=== PATIENT | male | born 1980 | race Caucasian/White ===

== ENCOUNTER 2016-09-21 13:43 | Emergency (ER) | payer OTHER ==
[~2016-09-21] VITALS: Ht 180.3 cm; Wt 95.1 kg
[~2016-09-21 13:43] MED LIST: PERC5TAB12 PO
[2016-09-21 13:45] VITALS: BP 147/83; PULSE 99; RESP 15; TEMP 98.1; O2SAT 100
--- NOTE | 2016-09-21 14:29 | PD ---
HPI Chief Complaint: Foreign Body Time Seen by Provider: 14:26 Travel History International Travel<30 days: No Contact w/Intl Traveler<30days: No Traveled to known affect area: No History of Present Illness HPI 36-year-old male with PMH of DM presents to the ED for evaluation of right knee pain. Patient states that he tripped 3 days ago, landing on the right knee. States that the injury was minor and he gave it very little thought. However after the mild swelling went down he noticed redness and tenderness on the anterior aspect near the patella. He suspects there may be a foreign body. He states that he attempted to remove the foreign body with tweezers but was unsuccessful. He denies fevers, chills, numbness, tingling, weakness, limitations to range of motion or loss of strength of the extremity. PFSH Past Medical History Hx Anticoagulant Therapy: No Arthritis: No Asthma: No Heart Rhythm Problems: No Cardiovascular Problems: No High Cholesterol: No Chemotherapy: No Chest Pain: Yes (TODAY ONLY) COPD: No Cerebrovascular Accident: No Diabetes: Yes (Type 1) Patient Takes Glucophage: No Diminished Hearing: No GERD: No Genitourinary: No Headaches: No Hepatitis: No Hiatal Hernia: No Hypertension: No Kidney Stones: No Medical other: Yes (chonic left hip pain) Musculoskeletal: No Neurologic: No Reproductive: No Respiratory: No Migraines: No Myocardial Infarction: No Pancreatitis: Yes Renal Failure: No Seizures: No Sleep Apnea: No Ulcer: No Tetanus Vaccination: < 5 Years Influenza Vaccination: No ?: Not Past Surgical History Abdominal Surgery: Yes (partial pancreatectomy) Appendectomy: No Cardiac Surgery: No Cholecystectomy: Yes Ear Surgery: No Endocrine Surgery: No Eye Surgery: No Genitourinary Surgery: No Gynecologic Surgery: No Joint Replacement: Yes (LEFT HIP reconstruction) Oral Surgery: No Thoracic Surgery: No Other Surgery: Yes Social History Alcohol Use: No Tobacco Use: Yes (1/2 PPD) Substance Use: No Allergies-Medications (Allergen,Severity, Reaction): Coded Allergies: Skelaxin (Verified Allergy, Mild, itch, 09/21/16) Methadone (Verified Adverse Reaction, Intermediate, dizzy, 09/21/16) Reported Meds & Prescriptions Reported Meds & Active Scripts Active Keflex (Cephalexin) 500 Mg Cap 500 Mg PO Q8H Bactrim DS (Sulfamethoxazole-Trimethoprim) 800-160 Mg Tab 1 Tab PO BID Review of Systems Except as stated in HPI: all other systems reviewed are Neg Physical Exam Narrative GENERAL: Well-nourished, well-developed white male in no acute distress. SKIN: Focused skin assessment warm/dry. There is a 1 cm tender, erythematous, indurated area with a central punctum on the anterior aspect of the right knee. HEAD: Normocephalic. EYES: No scleral icterus. No injection or drainage. NECK: Supple, trachea midline. No JVD or lymphadenopathy. CARDIOVASCULAR: Regular rate and rhythm without murmurs, gallops, or rubs. RESPIRATORY: Breath sounds equal bilaterally. No accessory muscle use. GASTROINTESTINAL: Abdomen soft, non-tender, nondistended. MUSCULOSKELETAL: No cyanosis, or edema. Focused right lower extremity exam: 2+ DP pulse. Mild tenderness palpation of the anterior superior patella. Patient maintains full, active, painless ROM of the extremity. Neurovascularly intact. BACK: Nontender without obvious deformity. No CVA tenderness. Data Data Last Documented VS Vital Signs Date Time Temp Pulse Resp B/P Pulse Ox O2 Delivery O2 Flow Rate FiO2 09/21/16 14:02 16 09/21/16 13:45 98.1 99 147/83 100 Orders Knee, Ltd (1 Or 2vws) (09/21/16 14:25) Lidocai-Epi 1%-1:100,000 Inj (Xylocaine- (09/21/16 15:15) MDM Medical Decision Making Medical Screen Exam Complete: Yes Emergency Medical Condition: Yes Differential Diagnosis contusion versus foreign body versus abscess versus cellulitis versus other Narrative Course 36-year-old male with PMH of DM presents to the ED for evaluation of right knee pain. Patient states that he tripped 3 days ago, landing on the right knee. After the mild swelling went down he noticed redness and tenderness on the anterior aspect near the patella. He suspects there may be a foreign body. He denies fevers, chills, numbness, tingling, weakness, limitations to range of motion or loss of strength of the extremity. Vitals reviewed. Physical exam reveals a 1 cm tender, erythematous, indurated area with a central punctum on the anterior aspect of the right knee. No limitations to our OM. Neurovascularly intact. X-rays revealed no acute finding or foreign body per radiology read. Wound exploration and foreign body removal was performed. Please see my procedure note for details. Given the patient's history of DM he was prescribed prophylactic antibiotics, Bactrim and Keflex. He is instructed to take the medicine as prescribed, return for worsening of symptoms, otherwise follow up with the primary care provider. He indicated understanding of the instructions and is agreeable to the care plan. He is stable and discharged home. Procedures Procedure Narrative WOUND EXPLORATION AND FB REMOVAL: LOCATION: Right anterior knee LENGTH: 2 mm The area was anesthetized with 1% lidocaine with epinephrine, 2 mL's. Adequate anesthesia was obtained. The wound was prepped with Betadine. The wound was flushed with copious normal saline and a minuscule, nonmetallic foreign body was removed. The wound was left open to heal by secondary intention. A sterile dressing was applied. Patient was given detailed wound care instructions. He tolerated the procedure well. Diagnosis Primary Impression: Puncture wound of right knee with foreign body Qualified Code: S81.041A - Puncture wound of right knee with foreign body, initial encounter Referrals: Primary Care Physician Patient Instructions: General Instructions, Puncture Wound (ED) Additional Instructions: Rest, hydrate. Do not change the dressing for 24 hours You may shower normally. Do not submerge the wound. After bathing pat of wound dry. Allow the wound to air dry for 10-15 minutes. Apply a thin layer of antibiotic ointment and a clean, dry dressing. Take the antibiotics as they are prescribed, even if your symptoms resolve. Utilize [id number] pain medications, as described on the label, as needed. Follow-up with your primary care provider. Return to the ED for worsening symptoms or any urgent or emergent medical condition. Scripts Cephalexin (Keflex)500 Mg [id number] Mg PO Q8H #30 CAP Ref 0 Prov:Nell Mariee MD 09/21/16 Sulfamethoxazole-Trimethoprim (Bactrim DS)800-160 Mg Tab1 Tab PO BID #14 TAB Ref 0 Prov:Nell Mariee MD 09/21/16 Disposition: 01 DISCHARGE HOME Condition: Stable Magalis Ceja Sep 21, 2016 14:28
--- NOTE | 2016-09-21 15:12 | RADHPO ---
EXAM DATE/TIME: 09/21/2016 14:45 [facility] COMPARISON: No previous studies available for comparison. INDICATIONS : Small, non healing puncture wound from fall 1 week ago, possible foreign body per patient MEDICAL HISTORY : None. SURGICAL HISTORY : None. ENCOUNTER: Initial ACUITY: 1 week PAIN SCORE: 2/10 LOCATION: Right knee FINDINGS: Two view examination of the right knee demonstrates no evidence of fracture or dislocation. Bony min eralization is normal. The suprapatellar soft tissues have a normal configuration. CONCLUSION: 1. No acute findings. No radiopaque foreign body identified. Quang Swenson MD on September 21, 2016 at 15:08 Board Certified Radiologist. This report was verified electronically.
[2016-09-21] MEDS ORDERED: LIDOCAINE 1%/EPINEPHrine 1:100,000 SOLN 20 ML VIAL INFIL ONE (15:15)
[2016-09-21] MEDS ORDERED: CEPH-460 PO (15:33)
[2016-09-21] MEDS ORDERED: BACT800T5 PO (15:33)
== END 2016-09-21 15:43 | disposition home or self-care (01) ==
LOC: PHEFT 13:43
DX: S81.041A Puncture wound with foreign body, right knee, initial encounter (principal); E10.9 Type 1 diabetes mellitus without complications; F17.200 Nicotine dependence, unspecified, uncomplicated; Z87.39 Personal history of other diseases of the musculoskeletal system and connective tissue; Z87.19 Personal history of other diseases of the digestive system; W01.0XXA Fall on same level from slipping, tripping and stumbling without subsequent striking against object, initial encounter
CPT/HCPCS: 73560; 99283

== ENCOUNTER 2018-03-31 15:37 | Inpatient (IN) ==
[2018-03-31] MEDS: Dextrose 10% in Water Inj 1,000 ML IV.SIG SCH ×2 (17:14→21:09)
[2018-03-31] MEDS ORDERED: Dextrose 50% in Water 50 ML Vial IV.PUSH PRN (17:29)
[2018-03-31] MEDS ORDERED: Bisacodyl 10 MG Supp RECTAL PRN (17:31)
[2018-03-31 18:12] LABS: Baso % (Auto) 0.5 % (0.0-2.0); Eos # (Auto) 0.1 th/mm3 (0.0-0.4); Eos % (Auto) 1.3 % (0.0-4.0); Hematocrit 42.3 % (39.0-51.0); Hemoglobin 15.4 gm/dL (13.0-17.0); Lymph # (Auto) 2.3 th/mm3 (1.0-4.8); Lymph % (Auto) 26.5 % (9.0-44.0); Mean Corpuscular Hemoglobin 31.9 pg (27.0-34.0); Mean Corpuscular Volume 87.3 fL (80.0-100.0); Mean Platelet Volume 7.8 fL (7.0-11.0); Mono # (Auto) 0.8 th/mm3 (0.0-0.9); Mono % (Auto) 9.3 % (0.0-8.0); Neut # (Auto) 5.5 th/mm3 (1.8-7.7); Neut % (Auto) 62.4 % (16.0-70.0); Platelet Count 115 th/mm3 (150-450); Red Blood Count 4.84 mil/mm3 (4.50-5.90); Red Cell Distribution Width 12.8 % (11.6-17.2); White Blood Count 8.8 th/mm3 (4.0-11.0)
[2018-03-31 18:16] LABS: Mean Corpuscular HGB Conc 36.5 % (32.0-36.0)
[2018-03-31 18:24] LABS: INR 1.2 Ratio; Prothrombin Time 12.4 sec (9.8-11.6)
[2018-03-31 18:34] LABS: Alanine Aminotransferase 25 U/L (12-78)
[2018-03-31 18:37] LABS: Alkaline Phosphatase 101 U/L (45-117); Total Protein 7.5 g/dL (6.4-8.2)
[2018-03-31 18:52] LABS: Bilirubin,Urine Negative (Negative); Clarity,Urine Clear (Clear); Color,Urine Yellow (Yellw/Straw); Glucose,Urine (UA) 500 or Greater mg/dL (Negative); Leukocyte Esterase,Urine Negative (Negative); Mucus,Urine Few /lpf (Occasional); Nitrite,Urine Negative (Negative); Specific Gravity,Urine 1.022 (1.002-1.035); Squamous Epithelial Cell,Urine <1 /hpf (0-5)
[2018-03-31 19:05] LABS: Albumin 3.9 g/dL (3.4-5.0); Anion Gap 6 meq/L (5-15); Aspartate Aminotransferase 7 U/L (15-37); Blood Urea Nitrogen 8 mg/dL (7-18); Calcium 8.3 mg/dL (8.5-10.1); Carbon Dioxide 29.6 meq/L (21.0-32.0); Chloride 97 meq/L (98-107); Glomerular Filtration Rate Greater Than 89 mL/min (>89); Glucose,Random 252 mg/dL (74-106); Potassium 3.7 meq/L (3.5-5.1)
[2018-03-31 19:08] LABS: Sodium 133 meq/L (136-145)
[2018-03-31] MEDS: Insulin Detemir Inj 1,000 UNIT/10 ML Vial SQ SCH (20:52)
[2018-03-31] MEDS: Insulin NovoLOG Aspart Correctional Sugar Inj SQ SCH (20:52)
[2018-03-31] MEDS ORDERED: Naloxone Inj 0.4 MG/ML Vial IV.PUSH PRN (21:17)
[2018-03-31] MEDS ORDERED: Sodium Chloride 1 GM Tablet PO ONE (21:22)
[2018-03-31] MEDS ORDERED: Sodium Chloride 0.9% 2 ML Flush PRN IV.FLUSH (21:33)
--- NOTE | 2018-03-31 21:42 | P.HPIM ---
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 Patient denies any fevers, chills, chest pain , shortness of breath. He has a PICC line which was placed 2 weeks ago has been getting intermittent infusions of D10. Inpatient Certification: I certify that the inpatient services were ordered in accordance with Medicare regulations governing the order. This includes certification that hospital inpatient services are reasonable and necessary and in the case of services not specified as inpatient-only under 42 CFR 419.22(n), that they are appropriately provided as inpatient services in accordance to with the 2-midnight benchmark under 43 CFR 412.3(e) Estimated Total Length of Stay (Days): 3 Plans for Post Hospital Care: Home Review of Systems All other systems reviewed negative except as stated in HPI PMFSH - History History Provided By: Patient, Family Member - Medical History Medical History: Medical History (Last Reviewed 03/31/18 @ 21:40 by Kurt Garcia MD) Acute intermittent porphyria Diabetes - Surgical History Surgical History: Surgical History (Last Reviewed 03/31/18 @ 21:40 by Kurt Garcia MD) History of left hip replacement History of partial pancreatectomy - Family History Family History: Family History (Last Updated 03/31/18 @ 21:41 by Kurt Garcia MD) Mother Porphyria - Social History I have reviewed the patient's Social History: Yes - Tobacco History Second Hand Smoke Exposure: Yes Tobacco Use In Past 30 Days: Yes Smoking Status: Current every day smoker Tobacco Type: Cigarettes - Alcohol History How Often Do You Have a Drink Containing Alcohol: Never - Substance Use History Substance History: No History of Abuse - Immunization History Hx Influenza Vaccine This Season: No Medications and Allergies Active Medications: Active Medications Hydrocodone Bitart/Acetaminophen (Erwin 5/325) 1 tab PO Q4H PRN PRN Reason: PAIN SCALE 3 TO 5 Al Hydroxide/Mg Hydroxide (Milk Of Magnesia Liq) 30 ml PO Q12H PRN PRN Reason: Mild Constipation Bisacodyl (Dulcolax Supp) 10 mg RECTAL DAILY PRN PRN Reason: SEVERE CONSITIPATION Dextrose (D50w Vial) 50 ml IV.PUSH UNSCH PRN PRN Reason: PER HYPOGLYCEMIA PROTOCOL Glucagon (Glucagon Inj) 1 mg OTHER PRN PRN PRN Reason: for Hypoglycemia Protocol Dextrose (D10w Inj) 1,000 mls @ 250 mls/hr IV.SIG .Q4H [facility] Last Admin: 03/31/18 21:09 Dose: 250 mls/hr Insulin Aspart (Novolog Insulin Correctional Sugar Inj) 0 unit SQ ACHS MAXX; Protocol Last Admin: 03/31/18 20:52 Dose: 5 unit Insulin Detemir (Levemir Inj) 8 unit SQ BID MAXX Last Admin: 03/31/18 20:52 Dose: 8 unit Lactulose (Lactulose Liq) 30 ml PO DAILY PRN PRN Reason: SEVERE CONSITIPATION Naloxone HCl (Narcan Inj) 0.4 mg IV.PUSH UNSCH PRN PRN Reason: SEE LABEL COMMENTS Oxycodone HCl (Roxicodone) 10 mg PO Q4H PRN PRN Reason: PAIN SCALE 6 TO 10 Sennosides (Senokot) 17.2 mg PO Q12H PRN PRN Reason: Moderate Constipation Sodium Chloride (Ns Flush) 2 ml IV.FLUSH BID MAXX Sodium Chloride (Ns Flush) 2 ml IV.FLUSH PRN PRN PRN Reason: FLUSH AFTER USING IV ACCESS Allergies Allergy/AdvReac Type Severity Reaction Status Date / Time metaxalone Allergy Mild itch Verified 03/25/18 13:34 methadone AdvReac Intermediate dizzy Verified 03/25/18 13:34 Home Medications Medication Instructions Recorded Confirmed Type insulin aspart U-100 [Novolog 1 sliding scale dose SUBCUT UD 03/25/18 03/31/18 History PenFill U-100 Insulin] insulin glargine [Lantus U-100 15 unit SUBCUT DAILY 03/25/18 03/31/18 History Insulin] hydrocodone-acetaminophen 1 tab PO Q6H 03/31/18 03/31/18 History prochlorperazine maleate 10 mg PO Q6-8H PRN 03/31/18 03/31/18 History [Compazine] Exam Vital signs: Vital Signs 03/31/18 16:25 Temperature 97.8 F Pulse Rate 75 Respiratory Rate 18 Blood Pressure 132/78 Pulse Oximetry 100 Intake & Output 03/31/18 03/31/18 04/01/18 06:59 18:59 06:59 Intake Total 1000 / 1000 Balance 1000 / 1000 Intake: IV 1000 / 1000 D10W Inj 1,000 ML @ 250 mls/hr 1000 / 1000 IV.SIG .Q4H MAXX Rx#:[id number] Other: Date of Last Bowel Movement 03/30/18 Narrative: GENERAL: patient sitting up in bed. Appears comfortable. eating sandwich. SKIN: Warm and dry. HEAD: Atraumatic. Normocephalic. EYES: Pupils equal and round. No scleral icterus. No injection or drainage. ENT: No nasal bleeding or discharge. Mucous membranes pink and moist. NECK: Trachea midline. No JVD. CARDIOVASCULAR: Regular rate and rhythm. RESPIRATORY: No accessory muscle use. Clear to auscultation. Breath sounds equal bilaterally. GASTROINTESTINAL: Abdomen soft, non-tender, nondistended. Hepatic and splenic margins not palpable. MUSCULOSKELETAL: Extremities without clubbing, cyanosis, or edema. No obvious deformities. NEUROLOGICAL: Awake and alert. No obvious cranial nerve deficits. Motor grossly within normal limits. Five out of 5 muscle strength in the arms. Patient with some slight weakness on the left. To the right lower extremity he reports secondary to left hip replacement.Normal speech. PSYCHIATRIC: Appropriate mood and affect; insight and judgment normal. Results - Labs CBC & Chem 7: 03/31/18 18:00 03/31/18 18:00 Labs: Short CBC 03/31/18 Range/Units 18:00 WBC 8.8 (4.0-11.0) th/mm3 Hgb 15.4 (13.0-17.0) gm/dL Hct 42.3 (39.0-51.0) % Plt Count 115 L (150-450) th/mm3 BMP 03/31/18 18:00 Sodium 133 L Potassium 3.7 Chloride 97 L Carbon Dioxide 29.6 BUN 8 Creatinine 0.71 Calcium 8.3 L Liver Function 03/31/18 Range/Units 18:00 Total Bilirubin 1.3 H (0.2-1.0) mg/dL AST 7 L (15-37) U/L ALT 25 (12-78) U/L Alkaline Phosphatase 101 (45-117) U/L Albumin 3.9 (3.4-5.0) g/dL Urine 03/31/18 Range/Units 18:20 Urine Color Yellow (Yellw/Straw) Urine Clarity Clear (Clear) Urine pH 6.0 (5.0-8.5) Ur Specific [place] 1.022 (1.002-1.035) Urine Protein Negative (Neg-Trace) mg/dL Urine Glucose (UA) 500 or greater (Negative) mg/dL Caprini VTE Risk Assessment Caprini VTE Risk Assessment: No/Low Risk (score <= 1) Caprini Risk Assessment Model: Point Value = 1 Point Value = 2 Point Value = 3 Point Value = 5 Age 41-60 Minor surgery BMI > 25 kg/m2 Swollen legs Varicose veins or History of unexplained or recurrent spontaneous Oral contraceptives or hormone replacement Sepsis (< 1 month) Serious lung disease, including pneumonia (< 1 month) Abnormal pulmonary function Acute myocardial infarction Congestive heart failure (< 1 month) History of inflammatory bowel disease Medical patient at bed rest Age 61-74 Arthroscopic surgery Major open surgery (> 45 min) Laparoscopic surgery (> 45 min) Malignancy Confined to bed (> 72 hours) Immobilizing plaster cast Central venous access Age >= 75 History of VTE Family history of VTE Factor V Leiden Prothrombin [id number] Lupus anticoagulant Anticardiolipin antibodies Elevated serum homocysteine Heparin-induced thrombocytopenia Other congenital or acquired thrombophilia Stroke (< 1 month) Elective arthroplasty Hip, pelvis, or leg fracture Acute spinal cord injury (< 1 month) Prophylaxis Regimen: Total Risk Factor Score Risk Level Prophylaxis Regimen 0-1 Low Early ambulation 2 Moderate Order ONE of the following: *Sequential Compression Device (SCD) *Heparin 5000 units SQ BID 3-4 Higher Order ONE of the following medications: *Heparin 5000 units SQ TID *Enoxaparin/Lovenox 40 mg SQ daily (WT < 150 kg, CrCl > 30 mL/min) *Enoxaparin/Lovenox 30 mg SQ daily (WT < 150 kg, CrCl > 10-29 mL/min) *Enoxaparin/Lovenox 30 mg SQ BID (WT < 150 kg, CrCl > 30 mL/min) AND/OR *Sequential Compression Device (SCD) 5 or more Highest Order ONE of the following medications: *Heparin 5000 units SQ TID (Preferred with Epidurals) *Enoxaparin/Lovenox 40 mg SQ daily (WT < 150 kg, CrCl > 30 mL/min) *Enoxaparin/Lovenox 30 mg SQ daily (WT < 150 kg, CrCl > 10-29 mL/min) *Enoxaparin/Lovenox 30 mg SQ BID (WT < 150 kg, CrCl > 30 mL/min) AND *Sequential Compression Device (SCD) Assessment and Plan - Plan //Acute intermittent porphyria exacerbation D10 infusion as per discussion with hematology. Pain control. Monitor labs. Hematology consulted. Appreciate assistance. Diabetes mellitus. 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 Long-acting and sliding scale insulin ordered. Tobacco abuse. Cessation counseling provided. Discussed Condition With: PATIENT, NURSE, MOTHER BEDSIDE, SCRUM PROJECT MANAGER H&P: Quality - VTE Deep Vein Thrombosis/Pulmonary Embolism Present on Admission: No
[2018-04-01] MEDS: Dextrose 10% in Water Inj 1,000 ML IV.SIG SCH ×5 (01:00→19:56)
[2018-04-01 05:54] LABS: Baso % (Auto) 0.5 % (0.0-2.0); Eos # (Auto) 0.1 th/mm3 (0.0-0.4); Eos % (Auto) 1.2 % (0.0-4.0); Hematocrit 42.4 % (39.0-51.0); Hemoglobin 15.2 gm/dL (13.0-17.0); Lymph % (Auto) 24.7 % (9.0-44.0); Mean Corpuscular HGB Conc 35.9 % (32.0-36.0); Mean Corpuscular Hemoglobin 31.6 pg (27.0-34.0); Mean Platelet Volume 7.9 fL (7.0-11.0); Mono # (Auto) 0.7 th/mm3 (0.0-0.9); Mono % (Auto) 9.2 % (0.0-8.0); Neut # (Auto) 5.2 th/mm3 (1.8-7.7); Neut % (Auto) 64.4 % (16.0-70.0); Platelet Count 105 th/mm3 (150-450); Red Blood Count 4.82 mil/mm3 (4.50-5.90); Red Cell Distribution Width 12.7 % (11.6-17.2)
[2018-04-01 06:21] LABS: Phosphorus 3.1 mg/dL (2.5-4.9)
[2018-04-01 06:29] LABS: Albumin 3.7 g/dL (3.4-5.0); Anion Gap 9 meq/L (5-15); Blood Urea Nitrogen 6 mg/dL (7-18); Calcium 8.6 mg/dL (8.5-10.1); Carbon Dioxide 25.4 meq/L (21.0-32.0); Chloride 100 meq/L (98-107); Glomerular Filtration Rate Greater Than 89 mL/min (>89); Glucose,Random 301 mg/dL (74-106); Lipase 39 U/L (73-393); Magnesium 1.9 mg/dL (1.5-2.5); Sodium 134 meq/L (136-145)
[2018-04-01 06:30] LABS: Potassium 4.1 meq/L (3.5-5.1)
[2018-04-01] MEDS: Insulin NovoLOG Aspart Correctional Sugar Inj SQ SCH ×4 (09:03→20:00)
[2018-04-01] MEDS: Sodium Chloride 0.9% 2 ML Flush BID IV.FLUSH SCH ×2 (09:04→20:00)
[2018-04-01] MEDS: Insulin Detemir Inj 1,000 UNIT/10 ML Vial SQ SCH ×2 (09:04→20:00)
--- NOTE | 2018-04-01 13:17 | P.PNIM ---
Subjective Interval history: Says he is feeling much better today. Denies any chest pain. Reports abdominal pain much improved. Physical Exam Vital signs: Vital Signs 03/31/18 16:25 03/31/18 20:00 04/01/18 00:00 Temperature 97.8 F 98 F 97.7 F Pulse Rate 75 76 63 Respiratory Rate 18 16 16 Blood Pressure 132/78 138/70 125/62 Pulse Oximetry 100 98 98 04/01/18 04:00 04/01/18 07:18 04/01/18 08:00 Temperature 98 F 98.2 F Pulse Rate 70 64 74 Respiratory Rate 15 18 Blood Pressure 131/69 136/67 Pulse Oximetry 100 100 04/01/18 11:09 04/01/18 12:00 Temperature 97.9 F Pulse Rate 68 76 Respiratory Rate Blood Pressure 133/75 Pulse Oximetry Intake & Output 03/31/18 04/01/18 04/01/18 18:59 06:59 18:59 Intake Total 3480 / 3480 1700 / 1700 Balance 3480 / 3480 1700 / 1700 Intake: IV 3000 / 3000 1700 / 1700 D10W Inj 1,000 ML @ 250 mls/hr 3000 / 3000 1700 / 1700 IV.SIG .Q4H MAXX Rx#:[id number] Oral 480 / 480 Other: # Voids 3 Date of Last Bowel Movement 03/30/18 03/31/18 03/31/18 Narrative: GENERAL: Patient sitting up in bed. Appears comfortable. SKIN: Warm and dry. HEAD: Normocephalic. EYES: No scleral icterus. No injection or drainage. NECK: Supple, trachea midline. No JVD. CARDIOVASCULAR: Regular rate and rhythm without murmurs, gallops, or rubs. RESPIRATORY: Breath sounds equal bilaterally. No accessory muscle use. GASTROINTESTINAL: Abdomen soft, non-tender, nondistended. MUSCULOSKELETAL: No cyanosis, or edema. BACK: Nontender without obvious deformity. No CVA tenderness. Results - Labs CBC & Chem 7: 04/01/18 05:03 04/01/18 05:03 Laboratory Results - last 24 hr 03/31/18 03/31/18 03/31/18 17:54 18:00 18:00 WBC 8.8 RBC 4.84 Hgb 15.4 Hct 42.3 MCV 87.3 MCH 31.9 MCHC 36.5 H RDW 12.8 Plt Count 115 L MPV 7.8 Prelim Diff (Auto) Slide review pending Neut % (Auto) 62.4 Lymph % (Auto) 26.5 [place] % (Auto) 9.3 H Eos % (Auto) 1.3 Baso % (Auto) 0.5 Neut # (Auto) 5.5 Lymph # (Auto) 2.3 [place] # (Auto) 0.8 Eos # (Auto) 0.1 Baso # (Auto) 0.0 WBC Differential . Diff Scan Auto diff confirmed Differential Comment . PT 12.4 H INR 1.2 Sodium Potassium Chloride Carbon Dioxide Anion Gap BUN Creatinine Estimated GFR POC Glucose 277 H Random Glucose Calcium Phosphorus Magnesium Total Bilirubin AST ALT Alkaline Phosphatase Total Protein Albumin Lipase Urine Color Urine Clarity Urine pH Ur Specific [place] Urine Protein Urine Glucose (UA) Urine Ketones Urine Occult Blood Urine Nitrate Urine Bilirubin Urine Urobilinogen Ur Leukocyte Esterase Urine RBC Urine WBC Ur Squamous Epith Cells Urine Mucus Ur Microscopic Review 03/31/18 03/31/18 03/31/18 18:00 18:20 20:50 WBC RBC Hgb Hct MCV MCH MCHC RDW Plt Count MPV Prelim Diff (Auto) Neut % (Auto) Lymph % (Auto) [place] % (Auto) Eos % (Auto) Baso % (Auto) Neut # (Auto) Lymph # (Auto) [place] # (Auto) Eos # (Auto) Baso # (Auto) WBC Differential Diff Scan Differential Comment PT INR Sodium 133 L Potassium 3.7 Chloride 97 L Carbon Dioxide 29.6 Anion Gap 6 BUN 8 Creatinine 0.71 Estimated GFR Greater than 89 POC Glucose 258 H Random Glucose 252 H Calcium 8.3 L Phosphorus Magnesium Total Bilirubin 1.3 H AST 7 L ALT 25 Alkaline Phosphatase 101 Total Protein 7.5 Albumin 3.9 Lipase Urine Color Yellow Urine Clarity Clear Urine pH 6.0 Ur Specific [place] 1.022 Urine Protein Negative Urine Glucose (UA) 500 or greater Urine Ketones Negative Urine Occult Blood Moderate H Urine Nitrate Negative Urine Bilirubin Negative Urine Urobilinogen 2.0 H Ur Leukocyte Esterase Negative Urine RBC Less than 1 Urine WBC 1 Ur Squamous Epith Cells <1 Urine Mucus Few H Ur Microscopic Review Not Reportable 04/01/18 04/01/18 04/01/18 05:03 05:03 08:10 WBC 8.0 RBC 4.82 Hgb 15.2 Hct 42.4 MCV 88.0 MCH 31.6 MCHC 35.9 RDW 12.7 Plt Count 105 L MPV 7.9 Prelim Diff (Auto) Neut % (Auto) 64.4 Lymph % (Auto) 24.7 [place] % (Auto) 9.2 H Eos % (Auto) 1.2 Baso % (Auto) 0.5 Neut # (Auto) 5.2 Lymph # (Auto) 2.0 [place] # (Auto) 0.7 Eos # (Auto) 0.1 Baso # (Auto) 0.0 WBC Differential . Diff Scan Differential Comment Auto diff final PT INR Sodium 134 L Potassium 4.1 Chloride 100 Carbon Dioxide 25.4 Anion Gap 9 BUN 6 L Creatinine 0.74 Estimated GFR Greater than 89 POC Glucose 341 H Random Glucose 301 H Calcium 8.6 Phosphorus 3.1 Magnesium 1.9 Total Bilirubin AST ALT Alkaline Phosphatase Total Protein Albumin 3.7 Lipase 39 L Urine Color Urine Clarity Urine pH Ur Specific [place] Urine Protein Urine Glucose (UA) Urine Ketones Urine Occult Blood Urine Nitrate Urine Bilirubin Urine Urobilinogen Ur Leukocyte Esterase Urine RBC Urine WBC Ur Squamous Epith Cells Urine Mucus Ur Microscopic Review 04/01/18 11:35 WBC RBC Hgb Hct MCV MCH MCHC RDW Plt Count MPV Prelim Diff (Auto) Neut % (Auto) Lymph % (Auto) [place] % (Auto) Eos % (Auto) Baso % (Auto) Neut # (Auto) Lymph # (Auto) [place] # (Auto) Eos # (Auto) Baso # (Auto) WBC Differential Diff Scan Differential Comment PT INR Sodium Potassium Chloride Carbon Dioxide Anion Gap BUN Creatinine Estimated GFR POC Glucose 266 H Random Glucose Calcium Phosphorus Magnesium Total Bilirubin AST ALT Alkaline Phosphatase Total Protein Albumin Lipase Urine Color Urine Clarity Urine pH Ur Specific [place] Urine Protein Urine Glucose (UA) Urine Ketones Urine Occult Blood Urine Nitrate Urine Bilirubin Urine Urobilinogen Ur Leukocyte Esterase Urine RBC Urine WBC Ur Squamous Epith Cells Urine Mucus Ur Microscopic Review Assessment and Plan - Plan //Acute intermittent porphyria exacerbation D10 infusion as per discussion with hematology. Pain control. Monitor labs. Hematology consulted. Appreciate assistance. = 04/01. Discussed with upholstery department supervisor. Much improved symptoms. Will decrease IV fluids to 100 mL/h.. Diabetes mellitus. 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 Long-acting and sliding scale insulin ordered. = 04/01 Hyperglycemia in the 300s this morning. Expect to improve with decrease and D10 rate. Continue to monitor. Tobacco abuse. Cessation counseling provided. Discharge Planning: hopefully discharge home tomorrow if stable.
--- NOTE | 2018-04-01 18:14 | MB ---
cc: Evonne Corley MD,Kurt Cox MD DATE: 04/01/2018 REFERRING PHYSICIAN: Kurt Garcia MD CHIEF COMPLAINT: Dr. Garcia requests a consultation for Mr. Molina regarding acute intermittent porphyria. HISTORY OF PRESENT ILLNESS: Mr. 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 He has required insulin for his diabetes. After a trial of a low-carb diet, he developed abdominal symptoms very reminiscent to his mother's symptoms of acute intermittent porphyria. His mother is my patient diagnosed with acute intermittent porphyria. He had laboratory evaluation coordinated by his primary physician that showed a 24-hour urine during an acute attack, showing elevated porphyrins. The delta ALA was elevated in a 24-hour urine evaluation. At baseline, he appears to have hyperbilirubinemia with a bilirubin of 2.1. He established in Oncology/Hematology clinic on 03/24/2018. He was promptly started on hydration with D10, in addition to panhematin treatment. On his last day of panhematin, 03/31/2018, he has not improved significantly yet. He describes pervasive nausea. He is unable to tolerate p.o. His symptoms have improved, particularly his abdominal pain. His nausea improves transiently with antiemetic therapy. His symptoms have improved with the panhematin, however, he is not yet to a baseline where he can manage his symptoms at home. For this reason, an admission to the hospital was requested through Dr. Garcia. This admission was coordinated through Dr. Garcia. REVIEW OF SYSTEMS: He denies any fevers, chills or night sweats. His most troubling symptom is the abdominal pain and the nausea. Nausea is alleviated by Compazine p.r.n. He is trying not to take his pain medication. His glucose infusion is complicated by hyperglycemia for which he is giving himself sliding scale coverage of insulin. He feels improved, but still has a lot of symptoms. PAST MEDICAL HISTORY: Cirrhosis, type 2 diabetes, acute intermittent porphyria, chronic hyperbilirubinemia. PAST SURGICAL HISTORY: Left hip arthroplasty, paracentesis, PICC line placement. FAMILY HISTORY: Mother diagnosed with acute intermittent porphyria. Father has diabetes type 2. SOCIAL HISTORY: He is single. He smokes half a pack a day. He has about an 8 pack year smoking history. Denies any alcohol or illicit drug use. ALLERGIES: NO KNOWN DRUG ALLERGIES. MEDICATIONS FROM HOME: Include: 1. Lantus. 2. NovoLog. 3. Compazine p.r.n. PHYSICAL EXAMINATION: VITAL SIGNS: Temperature 98.2, heart rate 81, respiratory rate 16, blood pressure 110/67, saturation 100%. GENERAL: Mr. Molina is a well-developed, well-nourished, pleasant young man, in no acute distress. HEENT: His pupils are round, reactive to light and accommodation. Oropharynx is clear. NECK: Supple, no adenopathy. LUNGS: Clear to auscultation. CARDIOVASCULAR: Reveals a normal rate and rhythm. ABDOMEN: Benign with a large midline keloid scar. LOWER EXTREMITIES: No edema. NEUROLOGIC: Nonfocal. LABORATORY DATA: CBC is significant for white blood cell count 8.1, hemoglobin 15.4, platelet count of 15,000. Repeat platelet count shows a platelet count 105,000. PT is mildly prolonged glucoses over 200. Calcium is decreased. Total bilirubin is improved to 1.3. Baseline CBC from 02/25/2018 shows a WBC 6.8, hemoglobin 16.7, platelet count of 189. ASSESSMENT AND PLAN: Mr. Molina is a 38-year-old man with multiple medical problems. He is newly diagnosed acute intermittent porphyria. He has had an acute exacerbation that was going on for several weeks before his diagnosis. His symptoms have improved significantly with the D10 and panhematin infusion over 4 days. However, his symptoms have not resolved to a point where he can manage at home. We discussed at length his last 24 hours of hospitalization and continuous infusion of D10. His sugar is managed with p.r.n. insulin. We continue p.r.n. insulin per Dr. Garcia. We anticipate that his glucose would improve as we titrate down his glucose infusion to 100 mL per hour from 250 mL per hour. He had a big breakfast today. His nausea is improved to the point that he can eat. Last bowel movement was yesterday. Noted is a mild thrombocytopenia. He has a history of cirrhosis. Whether this is maintenance representative of hypersplenism will be monitored. He has no evidence of thromboembolic event. He is ambulatory. We will monitor for deep vein thromboses. A PICC line is in place. His PICC line is functioning well. His questions were answered to his satisfaction. The case was discussed with Dr. Garcia. MD ALEXIA Obregon/sammie , 05:17 PM , 05:32 PM
[2018-04-02 00:07] VITALS: RESP 16
[2018-04-02] MEDS: Dextrose 10% in Water Inj 1,000 ML IV.SIG SCH (04:46)
[2018-04-02 05:41] LABS: Albumin 3.4 g/dL (3.4-5.0); Anion Gap 7 meq/L (5-15); Blood Urea Nitrogen 9 mg/dL (7-18); Calcium 8.3 mg/dL (8.5-10.1); Carbon Dioxide 28.1 meq/L (21.0-32.0); Chloride 101 meq/L (98-107); Glomerular Filtration Rate Greater Than 89 mL/min (>89); Glucose,Random 269 mg/dL (74-106); Magnesium 2.1 mg/dL (1.5-2.5); Phosphorus 3.2 mg/dL (2.5-4.9); Sodium 136 meq/L (136-145)
[2018-04-02 06:17] LABS: Potassium 4.1 meq/L (3.5-5.1)
[2018-04-02] MEDS: Insulin NovoLOG Aspart Correctional Sugar Inj SQ SCH ×2 (08:45→11:30)
[2018-04-02] MEDS: Insulin Detemir Inj 1,000 UNIT/10 ML Vial SQ SCH (08:46)
[2018-04-02] MEDS: Sodium Chloride 0.9% 2 ML Flush BID IV.FLUSH SCH (08:46)
--- NOTE | 2018-04-02 11:32 | P.PN ---
Subjective Interval history: This is a pleasant 38 y/o Female with Intermittent Porphyria exacerbation and DM 04/02: Patient stable seen in his bedroom, discussed with nurse, improving his blood sugar he was on D10 at this time improved, condition, he has all his medicines at home, states does not need any medicine, okay to discharge from research computing specialist standpoint. no nausea, vomit or diarrhea. Physical Exam Vital signs: Vital Signs 04/01/18 12:00 04/01/18 15:36 04/01/18 16:00 Temperature 97.9 F 98.2 F Pulse Rate 76 74 81 Respiratory Rate 16 16 Blood Pressure 133/75 110/67 Pulse Oximetry 100 100 04/01/18 19:00 04/01/18 20:00 04/02/18 00:00 Temperature 98.5 F 98.3 F Pulse Rate 82 60 75 Respiratory Rate 14 16 Blood Pressure 116/72 143/69 H Pulse Oximetry 100 100 04/02/18 04:00 04/02/18 07:17 Temperature 97.6 F Pulse Rate 65 60 Respiratory Rate 16 Blood Pressure 130/69 Pulse Oximetry 99 Intake & Output 04/01/18 04/02/18 04/02/18 18:59 06:59 18:59 Intake Total 4388 / 4388 1240 / 1240 Output Total 1400 / 1400 800 / 800 Balance 2988 / 2988 440 / 440 Weight 86 kg Intake: IV 2700 / 2700 1000 / 1000 D10W Inj 1,000 ML @ 100 mls/hr 2700 / 2700 1000 / 1000 IV.SIG .Q10H MAXX Rx#:[id number] Oral 1688 / 1688 240 / 240 Output: Urine 1400 / 1400 800 / 800 Other: # Voids 1 Date of Last Bowel Movement 03/31/18 03/31/18 Weight On Admission 86 kg Narrative: GENERAL: No acute distress. SKIN: Warm and dry. HEAD: Normocephalic. EYES: No scleral icterus. No injection or drainage. NECK: Supple, trachea midline. No JVD. CARDIOVASCULAR: Regular rate and rhythm without murmurs, gallops, or rubs. RESPIRATORY: Breath sounds equal bilaterally. No accessory muscle use. GASTROINTESTINAL: Abdomen soft, non-tender, nondistended. MUSCULOSKELETAL: No cyanosis, or edema. BACK: Nontender without obvious deformity. No CVA tenderness. Results - Labs CBC & Chem 7: 04/01/18 05:03 04/02/18 04:45 Laboratory Results - last 24 hr 04/01/18 04/01/18 04/01/18 11:35 17:48 19:48 Sodium Potassium Chloride Carbon Dioxide Anion Gap BUN Creatinine Estimated GFR POC Glucose 266 H 314 H 149 H Random Glucose Calcium Phosphorus Magnesium Albumin 04/02/18 04/02/18 04:45 11:07 Sodium 136 Potassium 4.1 Chloride 101 Carbon Dioxide 28.1 Anion Gap 7 BUN 9 Creatinine 0.68 Estimated GFR Greater than 89 POC Glucose 180 H Random Glucose 269 H Calcium 8.3 L Phosphorus 3.2 Magnesium 2.1 Albumin 3.4 Assessment and Plan - Plan //Acute intermittent porphyria exacerbation D10 infusion as per discussion with hematology. Pain control. Monitor labs. Hematology consulted. Appreciate assistance. = 04/01. Discussed with paint spray tender. Much improved symptoms. Will decrease IV fluids to 100 mL/h.. 04/02: Improved and recommended by Hematology for discharge today Diabetes mellitus. 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 Long-acting and sliding scale insulin ordered. = 04/01 Hyperglycemia in the 300s this morning. Expect to improve with decrease and D10 rate. Continue to monitor. 04/02: improving off Dextrose, continue his own regimen at home. Tobacco abuse. Cessation counseling provided. Code Status: Full code. Discussed Condition With: Patient and nurse, and Hematology's VEGETABLE FARM WORKER Discharge Planning: Expected to be discharged later today.
--- NOTE | 2018-04-02 11:34 | P.PNONC ---
Subjective Interval history: Patient sitting at bedside, no acute distress. He reports he is feeling well and feels that he is ready to go home. He denies any nausea or vomiting this a.m. He states he has had quick intermittent LUQ abd pain, which he has not needed any medication for. Objective Vital Signs/Intake & Output: Vital Signs 04/01/18 12:00 04/01/18 15:36 04/01/18 16:00 Temperature 97.9 F 98.2 F Pulse Rate 76 74 81 Respiratory Rate 16 16 Blood Pressure 133/75 110/67 Pulse Oximetry 100 100 04/01/18 19:00 04/01/18 20:00 04/02/18 00:00 Temperature 98.5 F 98.3 F Pulse Rate 82 60 75 Respiratory Rate 14 16 Blood Pressure 116/72 143/69 H Pulse Oximetry 100 100 04/02/18 04:00 04/02/18 07:17 Temperature 97.6 F Pulse Rate 65 60 Respiratory Rate 16 Blood Pressure 130/69 Pulse Oximetry 99 Intake & Output 04/01/18 04/02/18 04/02/18 18:59 06:59 18:59 Intake Total 4388 / 4388 1240 / 1240 Output Total 1400 / 1400 800 / 800 Balance 2988 / 2988 440 / 440 Weight 86 kg Intake: IV 2700 / 2700 1000 / 1000 D10W Inj 1,000 ML @ 100 mls/hr 2700 / 2700 1000 / 1000 IV.SIG .Q10H MAXX Rx#:[id number] Oral 1688 / 1688 240 / 240 Output: Urine 1400 / 1400 800 / 800 Other: # Voids 1 Date of Last Bowel Movement 03/31/18 03/31/18 Weight On Admission 86 kg Result Diagrams: 04/01/18 05:03 04/02/18 04:45 Laboratory Results: Laboratory Results - last 24 hr 04/01/18 04/01/18 04/01/18 11:35 17:48 19:48 Sodium Potassium Chloride Carbon Dioxide Anion Gap BUN Creatinine Estimated GFR POC Glucose 266 H 314 H 149 H Random Glucose Calcium Phosphorus Magnesium Albumin 04/02/18 04/02/18 04:45 11:07 Sodium 136 Potassium 4.1 Chloride 101 Carbon Dioxide 28.1 Anion Gap 7 BUN 9 Creatinine 0.68 Estimated GFR Greater than 89 POC Glucose 180 H Random Glucose 269 H Calcium 8.3 L Phosphorus 3.2 Magnesium 2.1 Albumin 3.4 Medications: Active Medications Generic Name Dose Route Start Last Admin Trade Name Freq PRN Reason Stop Dose Admin Hydrocodone Bitart/Acetaminophen 1 tab 03/31/18 21:17 04/01/18 23:11 [place] 5/325 PO 1 tab Q4H PRN Administration PAIN SCALE 3 TO 5 Insulin Aspart 0 unit 03/31/18 21:00 04/02/18 08:45 Novolog Insulin Correctional Sugar Inj SQ 5 unit ACHS MAXX Administration Protocol Insulin Detemir 8 unit 03/31/18 21:00 04/02/18 08:46 Levemir Inj SQ 8 unit BID MAXX Administration Ondansetron HCl 4 mg 04/01/18 04:57 04/01/18 05:05 Zofran Inj IV.PUSH 4 mg Q6H PRN Administration NAUSEA Sodium Chloride 2 ml 04/01/18 09:00 04/02/18 08:46 Ns Flush IV.FLUSH 2 ml BID MAXX Administration Objective Remarks: GENERAL: Well-nourished, well-developed male patient, in no acute distress. SKIN: Warm and dry. HEAD: Normocephalic. EYES: No scleral icterus. No injection or drainage. NECK: Supple, trachea midline. CARDIOVASCULAR: Regular rate and rhythm without murmurs. RESPIRATORY: Breath sounds equal bilaterally. No accessory muscle use. GASTROINTESTINAL: Abdomen soft, non-tender, nondistended. EXTREMITIES: No cyanosis, or edema. MUSCULOSKELETAL: Adequate muscle tone. NEUROLOGICAL: No obvious focal deficit. Awake, alert, and oriented x3. PSYCHIATRIC: Appropriate mood and affect; insight and judgment normal. Assessment/Plan - Plan Mr. Riggins is a 38-year-old pleasant gentleman intermittent porphyria. He was admitted for nausea, inability to tolerate oral intake and abdominal pain. Recommendations: 1. Intermittent porphyria. Patient denies any further nausea or vomiting. He reports his pain is controlled and he has not needed pain medications today. 2. Patient stable from a hematology standpoint to be discharged home. He will follow-up in the clinic with his loom blower in 1-2 weeks.
[2018-04-02 12:55] VITALS: BP 121/69; TEMP 98; O2SAT 100
[2018-04-02 12:56] VITALS: PULSE 66
--- NOTE | 2018-04-02 16:49 | P.DS ---
Date of admission: 03/31/18 15:52 Primary care physician: Lopez Martin MD Attending physician on discharge: Anoop Jonas Anticipated date of discharge: 04/02/18 Brief History from admission: 38-year-old male with a history of diabetes secondary to partial pancreatectomy in 2003, recently with 4 month history of progressively worsening crampy epigastric pain radiating to back, as well as recent diagnosis of acute intermittent porphyria 2 weeks ago who is sent in by neurotology for treatment of acute intermittent porphyria. Patient denies any fevers, chills, chest pain , shortness of breath. He has a PICC line which was placed 2 weeks ago has been getting intermittent infusions of D10. DS: Diagnosis - Discharge Diagnosis (1) Porphyria Status: Acute (2) Diabetes Status: Acute DS: Summary Hospital Course: This is a pleasant 38 y/o Male with Intermittent Porphyria exacerbation and DM 04/02: Patient stable seen in his bedroom, discussed with nurse, improving his blood sugar he was on D10 at this time improved, condition, he has all his medicines at home, states does not need any medicine, okay to discharge from media services specialist standpoint. no nausea, vomit or diarrhea. Results - Labs CBC & Chem 7: 04/01/18 05:03 04/02/18 04:45 Laboratory Results - last 24 hr 04/01/18 04/01/18 04/01/18 11:35 17:48 19:48 Sodium Potassium Chloride Carbon Dioxide Anion Gap BUN Creatinine Estimated GFR POC Glucose 266 H 314 H 149 H Random Glucose Calcium Phosphorus Magnesium Albumin 04/02/18 04/02/18 04:45 11:07 Sodium 136 Potassium 4.1 Chloride 101 Carbon Dioxide 28.1 Anion Gap 7 BUN 9 Creatinine 0.68 Estimated GFR Greater than 89 POC Glucose 180 H Random Glucose 269 H Calcium 8.3 L Phosphorus 3.2 Magnesium 2.1 Albumin 3.4 Assessment and Plan - Plan //Acute intermittent porphyria exacerbation D10 infusion as per discussion with hematology. Pain control. Monitor labs. Hematology consulted. Appreciate assistance. = 04/01. Discussed with day care home mother. Much improved symptoms. Will decrease IV fluids to 100 mL/h.. 04/02: Improved and recommended by Hematology for discharge today Diabetes mellitus. 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 Long-acting and sliding scale insulin ordered. = 04/01 Hyperglycemia in the 300s this morning. Expect to improve with decrease and D10 rate. Continue to monitor. 04/02: improving off Dextrose, continue his own regimen at home. Tobacco abuse. Cessation counseling provided. Code Status: Full code. Discussed Condition With: Patient and nurse, and Hematology's KNOWLEDGE MANAGER Discharge Planning: Expected to be discharged later today. - Time Spent with Patient Total time spent providing and/or coordinating discharge services: Less than 30 minutes - Quality: VTE Deep Vein Thrombosis/Pulmonary Embolism Present on Admission: No Exam Vital signs: Vital Signs 04/01/18 19:00 04/01/18 20:00 04/02/18 00:00 Temperature 98.5 F 98.3 F Pulse Rate 82 60 75 Respiratory Rate 14 16 Blood Pressure 116/72 143/69 H Pulse Oximetry 100 100 04/02/18 04:00 04/02/18 07:17 04/02/18 08:00 Temperature 97.6 F 98.0 F Pulse Rate 65 60 75 Respiratory Rate 16 16 Blood Pressure 130/69 119/65 Pulse Oximetry 99 100 04/02/18 12:00 Temperature 98.0 F Pulse Rate 66 Respiratory Rate 16 Blood Pressure 121/69 Pulse Oximetry 100 Intake & Output 04/01/18 04/02/18 04/02/18 18:59 06:59 18:59 Intake Total 4388 / 4388 1240 / 1240 400 / 400 Output Total 1400 / 1400 800 / 800 Balance 2988 / 2988 440 / 440 400 / 400 Weight 86 kg Intake: IV 2700 / 2700 1000 / 1000 400 / 400 D10W Inj 1,000 ML @ 100 mls/hr 2700 / 2700 1000 / 1000 400 / 400 IV.SIG .Q10H MAXX Rx#:[id number] Oral 1688 / 1688 240 / 240 Output: Urine 1400 / 1400 800 / 800 Other: # Voids 1 Date of Last Bowel Movement 03/31/18 03/31/18 03/31/18 Weight On Admission 86 kg Narrative: GENERAL: No acute distress. SKIN: Warm and dry. HEAD: Normocephalic. EYES: No scleral icterus. No injection or drainage. NECK: Supple, trachea midline. No JVD. CARDIOVASCULAR: Regular rate and rhythm without murmurs, gallops, or rubs. RESPIRATORY: Breath sounds equal bilaterally. No accessory muscle use. GASTROINTESTINAL: Abdomen soft, non-tender, nondistended. MUSCULOSKELETAL: No cyanosis, or edema. BACK: Nontender without obvious deformity. No CVA tenderness. Results Procedures completed during hospitalization: None Labs on day of discharge: Labs from last 24 hours 04/02/18 04/02/18 04/01/18 11:07 04:45 19:48 Sodium 136 Potassium 4.1 Chloride 101 Carbon Dioxide 28.1 Anion Gap 7 BUN 9 Creatinine 0.68 Estimated GFR Greater than 89 POC Glucose 180 H 149 H Random Glucose 269 H Calcium 8.3 L Phosphorus 3.2 Magnesium 2.1 Albumin 3.4 04/01/18 17:48 Sodium Potassium Chloride Carbon Dioxide Anion Gap BUN Creatinine Estimated GFR POC Glucose 314 H Random Glucose Calcium Phosphorus Magnesium Albumin Discharge Plan - Discharge Disposition Patient Disposition: 01 Discharge Home - Discharge Condition Condition: Good - Discharge Order Discharge Orders: Discharge Order (Routine); Ordered 04/02/18 Ordered By: Anoop Jonas Oncology Clear for Discharge (Routine); Ordered 04/02/18 Ordered By: Ruth Curry - Discharge Details Anticipated Discharge Date: 04/02/18 Discharge Comment: Follow up with PCP Doctor Mario Marroquin in three days. - Physicians Team Primary Care Provider: Lopez Martin Attending Provider: Anoop Jonas Other Providers: Evonne Corley MD - Rxs /Orders / Referrals /Forms Prescriptions: Continue hydrocodone-acetaminophen 5-325 mg Tablet 1 tab PO Q6H insulin aspart U-100 [Novolog PenFill U-100 Insulin] 100 unit/mL Cartridge 1 sliding scale dose SUBCUT UD insulin glargine [Lantus U-100 Insulin] 100 unit/mL Solution 15 unit SUBCUT DAILY prochlorperazine maleate [Compazine] 10 mg Tablet 10 mg PO Q6-8H PRN (Reason: Pain) Referrals: Lopez Martin MD [Primary Care Provider] - See Instructions - Discharge Instructions Additional Instructions: Drink plenty of fluids.
== END 2018-04-02 14:00 | disposition home or self-care (01) ==
LOC: HCIN 15:52
PROVIDERS: ADMIT Internal Medicine; ATTEND Internal Medicine
CPT/HCPCS: 80053; 80069; 81001; 82948; 82962; 83690; 83735; 85025; 85610; J1815; J2405